=== PATIENT | female | born 1970 | race Caucasian/White ===

== ENCOUNTER 2025-02-11 01:09 | Emergency (ER) | payer OTHER ==
[2025-02-11] MEDS ORDERED: Naloxone 0.4 MG/ML SDV IVPUSH PRN (01:40)
[2025-02-11] MEDS: cefTRIAXone 2 GM in Water For Injection, Sterile 20 ML IVPUSH ONE (01:48)
[2025-02-11] MEDS: Ondansetron 4 MG/2 ML SDV IVPUSH ONE (01:53)
[2025-02-11 01:57] LABS: BASE EXCESS VENOUS -3.2 (-2.0-3.0); BICARBONATE,VENOUS 23.0 mEq/L (22-29); PCO2 VENOUS 45.0 mmHG (41-51); PH,VENOUS 7.32 (7.32-7.43); PO2 VENOUS 28.0 mmHG (35-45)
[2025-02-11 02:08] LABS: INR 1.16 (0.86-1.11); PTT,PARTIAL THROMBOPLSTIN TIME 27.6 SEC (23.9-30.7)
[2025-02-11] MEDS: LORazepam 2 MG/ML SDV IVPUSH ONE ×2 (02:20→02:33)
[2025-02-11 02:36] LABS: MEAN PLATELET VOLUME 9.9 fL (9.4-12.3); NRBC ABSOLUTE 0.00 K/uL (0.00-0.02); NRBC PERCENT 0.0 /100WBC (0.0-0.2); PLATELET COUNT,PLT 217 K/uL (150-400); RED BLOOD CELL COUNT 5.59 M/uL (4.10-5.30); WHITE BLOOD CELL COUNT,WBC 3.80 K/uL (3.9-11.3)
[2025-02-11 02:39] LABS: A/G RATIO 0.8 (0.9-1.6); ALANINE AMINOTRANSFERASE,ALT 82 IU/L (14-63); ASPARTATE AMNIOTRANSFERASE,AST 102 IU/L (15-37); BILIRUBIN TOTAL 1.0 mg/dL (0.2-1.0); BLOOD UREA NITROGEN,BUN 16 mg/dL (7.0-18.0); CARBON DIOXIDE,CO2 22.1 mmol/L (21.0-32.0); CHLORIDE,CL 97 mmol/L (98-107); CREATININE 2.0 mg/dL (0.6-1.0); EST CRCL DRUG DOSING (CG) 28.60 mL/min; ETHANOL BLOOD MEDICAL <3 mg/dL; GLUCOSE RANDOM 112 mg/dL (74-106); POTASSIUM,K 3.1 mmol/L (3.5-5.1); PRO B-TYPE NATRIUR PEPT,BNPPRO 10141 pg/mL (0-125); PROTEIN TOTAL,TP 7.4 g/dL (6.4-8.2); SODIUM,NA 135 mmol/L (136-145)
[2025-02-11 02:52] LABS: ESTIMATED GFR 29 mL/min (>60)
[2025-02-11] MEDS: Iopamidol 755 Mg/ML 100 ML Bottle IVPUSH STA (02:52)
[2025-02-11 03:04] LABS: BAND ABSOLUTE MAN 0.61; BAND PERCENT MAN 16 %; EOSINOPHILS ABSOLUTE MAN 0.04 K/uL (0.00-0.45); EOSINOPHILS PERCENT MAN 1 % (0-6); LYMPHOCYTES ABSOLUTE MAN 1.44 K/uL (1.00-4.80); LYMPHOCYTES PERCENT MAN 38 % (24-44); MONOCYTES ABSOLUTE MAN 0.65 K/uL (0.00-0.80); MONOCYTES PERCENT MAN 17 % (0-8); SEG NEUTROPHILS ABSOLUTE MAN 1.06 K/uL (1.80-7.70); SEG NEUTROPHILS PERCENT MAN 28 % (41-71)
[2025-02-11] MEDS: Etomidate 2 MG/ML 20 ML SDV IVPUSH ONE (03:28)
[2025-02-11] MEDS: Succinylcholine 200 MG/10 ML MDV IV ONE (03:29)
[2025-02-11 03:31] LABS: BASE EXCESS VENOUS -8.5 (-2.0-3.0); BICARBONATE,VENOUS 19.0 mEq/L (22-29); PCO2 VENOUS 47.0 mmHG (41-51); PH,VENOUS 7.22 (7.32-7.43); PO2 VENOUS 44.0 mmHG (35-45)
[2025-02-11] MEDS: fentaNYL/Normal Saline 2,500 MCG in Premix Bag 1 BAG IV SCH (03:41)
[2025-02-11] MEDS: propofoL 1,000 MG/100 ML 100 ML IV SCH (03:42)
[2025-02-11 04:03] LABS: GLUCOSE,URINE NEGATIVE (NEGATIVE); OCCULT BLOOD,URINE NEGATIVE (NEGATIVE)
[2025-02-11 04:11] LABS: APPEARANCE,URINE HAZY; EPITHELIAL CELLS,URINE FEW (NONE-FEW)
[2025-02-11] MEDS: Propofol 200 MG/20 ML SDV IVPUSH ONE (04:15)
[2025-02-11] MEDS: Benzocaine 20% Topical Spray UD MUCMEM ONE (04:40)
[2025-02-11] MEDS: Norepinephrine Bit/D5W Premix 250 ML IV SCH (04:41)
[2025-02-11 04:45] LABS: BASE EXCESS ARTERIAL -8.8 (-2.0-3.0); BICARBONATE,ARTERIAL 17 mEq/L (21-28); PCO2 ARTERIAL 38 mmHG (35-45); PO2 ARTERIAL 65 mmHG (83-108)
[2025-02-11] MEDS ORDERED: Furosemide 40 MG/4 ML VIAL IVPUSH ONE (05:40)
[2025-02-11] MEDS: VANCOmycin 2 GM/400 ML 400 ML IV ONE (06:53)
[2025-02-11 06:55] LABS: BASE EXCESS ARTERIAL -10.1 (-2.0-3.0); BICARBONATE,ARTERIAL 16 mEq/L (21-28); PCO2 ARTERIAL 33 mmHG (35-45); PO2 ARTERIAL 87 mmHG (83-108)
[2025-02-11] MEDS: Midazolam 1 MG/ML 2 ML SDV IVPUSH ONE (07:22)
[2025-02-11] MEDS: Ketorolac 30 MG/ML SDV IVPUSH STA (09:39)
[2025-02-11] MEDS: Norepinephrine Bit/D5W Premix 250 ML ONE (11:29)
[2025-02-11] MEDS: Vasopressin 20 Units/1 ML MDV ONE (11:29)
== END 2025-02-11 10:18 ==
LOC: MW.ED 01:09
DX: A41.9 Sepsis, unspecified organism (principal); R65.21 Severe sepsis with septic shock; J18.9 Pneumonia, unspecified organism; J96.01 Acute respiratory failure with hypoxia; R04.2 Hemoptysis; R50.9 Fever, unspecified; G89.29 Other chronic pain; Z79.890 Hormone replacement therapy; Z79.899 Other long term (current) drug therapy
CPT/HCPCS: 31500; 36415; 36556; 36600; 36620; 51702; 71045; 71275; 74018; 74177; 80053; 80307; 81001; 82803; 83605; 83690; 83735; 83880; 84484; 85025; 85610; 85730; 87040; 87426; 93005; 94660; 96365; 96366; 96368; 96375; 99291; 99292; A9270; J0330; J0696; J1885; J2060; J2250; J2270; J2405; J2598; J2704; J3372; J3490; J7030; J7620; Q9967; 93010; 99140; 99285